=== PATIENT | male | born 1960 | race Caucasian/White ===

== ENCOUNTER 2024-02-27 10:28 | Emergency (ER) | payer MEDICARE, SELFPAY ==
--- NOTE | ~2024-02-27 | XR_ITS ---
EXAMINATION: XR KNEE, LEFT XR TIBIA AND FIBULA, LEFT CLINICAL INFORMATION: Pain. Injury. COMPARISON: None available. TECHNIQUE: AP and lateral views of the left knee. AP and lateral views of the left tibia and fibula. 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 Lucency between the distal femur and anterior flange of the femoral component measures less than 2 mm and is nonspecific, most likely due to fibrous incorporation. Alignment appears appropriate. No joint effusion. Atherosclerotic calcifications are present in the popliteal and runoff arteries. Bones are osteopenic. The tibia and fibula are intact. Mild osteoarthritis of the talocrural joint with small marginal osteophytes. Moderate-sized enthesopathic spurs are present at the Achilles tendon insertion and plantar fascial origin on the calcaneus. XR/XR knee LT 2V IMPRESSION: 1. No acute fracture or malalignment at the left knee. 2. Appropriate alignment of the left total knee arthroplasty. 3. Mild osteoarthritis at the talocrural joint. Electronically signed by: Ashkan Forrest MD 02/27/2024 03:01 PM EDT
--- NOTE | ~2024-02-27 | US_ITS ---
EXAMINATION: US TRIPLEX LOWER EXTREMITY, LEFT CLINICAL INFORMATION: Left lower extremity pain COMPARISON: None available. TECHNIQUE: Color-flow triplex imaging with spectral analysis and compression Doppler were performed on the left lower extremity. FINDINGS: Respiratory variation, normal compression and augmented flow are noted throughout the left lower extremity. The visualized common femoral vein, superficial femoral vein, profunda femoral vein, popliteal vein and midcalf peroneal and posterior tibial venous segments show no evidence of deep venous thrombosis. The contralateral right common femoral vein appeared normal. There is no Walton's cyst. US/US venous duplex LE LT IMPRESSION: No evidence of deep venous thrombosis involving the left lower extremity. Electronically signed by: William Maria MD 02/27/2024 02:17 PM EDT
--- NOTE | ~2024-02-27 | XR_ITS ---
EXAMINATION: XR KNEE, LEFT XR TIBIA AND FIBULA, LEFT CLINICAL INFORMATION: Pain. Injury. COMPARISON: None available. TECHNIQUE: AP and lateral views of the left knee. AP and lateral views of the left tibia and fibula. 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 Lucency between the distal femur and anterior flange of the femoral component measures less than 2 mm and is nonspecific, most likely due to fibrous incorporation. Alignment appears appropriate. No joint effusion. Atherosclerotic calcifications are present in the popliteal and runoff arteries. Bones are osteopenic. The tibia and fibula are intact. Mild osteoarthritis of the talocrural joint with small marginal osteophytes. Moderate-sized enthesopathic spurs are present at the Achilles tendon insertion and plantar fascial origin on the calcaneus. XR/XR tibia fibula LT 2V IMPRESSION: 1. No acute fracture or malalignment at the left knee. 2. Appropriate alignment of the left total knee arthroplasty. 3. Mild osteoarthritis at the talocrural joint. Electronically signed by: Ashkan Forrest MD 02/27/2024 03:01 PM EDT
[2024-02-27 10:37] VITALS: BP 103/70; PULSE 80; RESP 20; TEMP 36.8; O2SAT 100; BMI 23.7
--- NOTE | 2024-02-27 11:39 | ED_ITS ---
HPI - General Adult General Chief complaint: General Medical Stated complaint: ? Blood Clot L Leg Time Seen by Provider: 02/27/24 11:36 Source: patient Mode of arrival: ambulatory Limitations: no limitations History of Present Illness ED Provider: Nydia Carballo PA-C HPI narrative: Patient is a 63 year old assigned male at with a history of strokes, atrial fib (on anti-coags), and fluid retention presenting to the emergency department today with left lower leg pain. Patient states that 4 days ago he began to have left lower leg pain and discoloration. Patient denies any dizziness, lightheadedness, abdominal pain, nausea, vomiting, fever, chills, blurry vision, double vision, loss of vision, chest pain, difficulty breathing, shortness of breath, back pain, night sweats, pain with urination, increased urinary frequency, increased urinary urgency, blood in his urine or stool, syncope or a near syncopal episode, recent trauma or falls, bowel incontinence, bladder incontinence, or any other complaints at this time. Onset (ago): day(s) (4) Location: left and lower extremity Relieving factors: none Exacerbating factors: none Associated symptoms: denies other symptoms Treatments prior to arrival: none Related Data Allergies Allergy/AdvReac Type Severity Reaction Status Date / Time No Known Allergies Allergy Verified 02/27/24 10:41 Review of Systems 2 Constitutional: Constitutional: Reports no additional constitutional complaints, Denies chills, Denies fever(s) and Denies night sweats Eyes: Eyes: Reports no additional eye complaints, Denies blurry vision, Denies change in vision, Denies diplopia, Denies eye discharge, Denies loss of vision and Denies eye pain ENT: Denies dizziness Cardiovascular: Cardiovascular: Reports no additional cardiovascular complaints, Denies chest pain, Denies lightheadedness, Denies Loss of Consciousness and Denies dyspnea Respiratory: Respiratory: Reports no additional respiratory complaints and Denies dyspnea Gastrointestinal: Gastrointestinal: Reports no additional gastrointestinal complaints, Denies abdominal pain, Denies melena, Denies hematochezia, Denies change in bowel habits and Denies change in stool character Genitourinary: Genitourinary: Reports no additional male genitourinary complaints, Denies hematuria, Denies oliguria, Denies difficulty urinating, Denies dysuria, Denies urinary frequency, Denies urinary hesitancy, Denies urinary incontinence and Denies urinary urgency Musculoskeletal: Musculoskeletal: Reports no additional musculoskeletal complaints, Denies numbness and Denies tingling Comments: left lower extremity pain / swelling Neurologic: Denies dizziness, Denies loss of vision, Denies numbness and Denies tingling Psychiatric: Psychiatric: Reports no additional psychiatric complaints Endocrine: Endocrine: Reports no additional endocrine complaints Hematologic/Lymphatic: Hematologic/Lymphatic: Reports no additional hematologic/lymphatic complaints Allergic/Immunologic: Allergic/Immunologic: Reports no additional allergic/immunologic complaints [facility] Past Medical History Attestation statement: The following information was validated with the patient. Source: old records reviewed and nursing notes reviewed Social History Social History Smoked in Last 30 Days: Yes Use of substances other than those prescribed or required for medical reasons: Yes Substance Use Type: Marijuana Advance Directives: Yes Advance Directives Information Provided: Yes Advance Directives on File: No Do you have a plan to hurt others: No Plan Physical Exam ED Vital Signs: Vital Signs - 24 hr 02/27/24 10:37 02/27/24 14:43 Temperature 98.3 F 0 F L Pulse Rate 80 68 Respiratory Rate 20 16 Blood Pressure 103/70 124/84 Pulse Oximetry 100 99 Oxygen Delivery Method Room Air Room Air BMI result Body Mass Index 23.7 Const General: cooperative, no acute distress, alert and awake Nutritional Appearance: well nourished Orientation/consciousness: patient oriented x3 Limitations: no limitations HENMT Head: Yes normal to inspection and Yes atraumatic Ears: hearing grossly normal bilaterally and external ears normal General nose exam: Normal external nose present, no nasal discharge noted and no epistaxis Face and sinus: Yes normal facial exam, No abrasion and No laceration Mouth: Normal oral and palatal mucosa present, no drooling and no muffled voice Eyes General: appearance normal, both eyes and all related structures Periorbital: periorbital findings normal Eyelids: Yes eyelids normal Conjunctivae: conjunctivae normal Pupils: Equal, round and reactive pupils present EOM: EOMs intact bilaterally Neck Neck: Yes normal visual inspection, Yes full ROM and Yes no lymphadenopathy Chest Chest palpation & inspection: normal inspection of the chest Resp Effort & Inspection: normal respiratory effort and able to speak in complete sentences GI Inspection: Yes normal to inspection Neuro General: patient oriented x3 and moves all extremities Cranial nerves: Yes Equal, round and reactive pupils present Cognition (Neuro): normal cognition Extrem Other: mild left lower extremity swelling / pain / bruising General: Yes full ROM and Yes capillary refill normal Psych Appearance: grossly normal Mental Status: mental status grossly normal Affect: normal affect Attitude: cooperative Thought process: Normal thought process present Thought content: Normal thought content present Insight: Good insight present (Psych) Medications Administered Discontinued Medications Generic Name Dose Route Start Last Admin Trade Name James PRN Reason Stop Dose Admin Potassium Chloride 40 meq 02/27/24 12:23 02/27/24 12:28 Potassium Chloride Packet 20 Meq Packet PO 02/27/24 12:24 40 meq ONCE ONE Administration Medical Decision Making Medical Decision Making [facility] Narrative: Patient is a 63 year old assigned male at with a history of strokes, atrial fib (on anti-coags), and fluid retention presenting to the emergency department today with left lower leg bruising and pain. Patient's physical exam was as noted in the physical exam portion of this note. Patient's blood work showed a mildly decreased potassium of 3.0 but were otherwise unremarkable. Patient's urine showed no acute process. Patient's EKG was unremarkable. Patient's left lower leg US showed no acute process. Given the patient has pain with walking to the left lower extremity - I'm suspicious his bruising and swelling is secondary to a muscle strain / sprain. I explained my physical exam findings as well as all test results to the patient and the patient's . I answered all questions asked by the patient and the patient's . Patient was given PO Potassium. I stressed the importance of the patient taking his medication as directed (either prescribed or as the over the counter packaging recommends). I stressed the importance of the patient following up with his primary care provider. I stressed the importance of the patient returning to the emergency department immediately if his symptoms were to worsen or if he were to develop any dizziness, shortness of breath, difficulty breathing, chest pain, blurry vision, loss of vision, nausea, vomiting, abdominal pain, fever, chills, back pain, or any other complaints. Patient verbalized agreement and understanding with this treatment plan and discharge. Differential Diagnosis Differential Diagnoses: The differential diagnosis associated with the presentation includes Muscle sprain Muscle strain DVT Admission/Observation Consideration of admission/observation: Escalation of care including admission/observation considered Patient would have been admitted to the hospital had his work up had any findings where hospital admission was appropriate and his clinical presentation warranted hospital admission. Lab Data [facility] Lab Attestation statement: I reviewed the patient's lab results. My interpretation of these results are in the [facility] Rationale portion of this note. 02/27/24 11:55 02/27/24 11:55 Labs: Lab Results 02/27/24 02/27/24 02/27/24 Range/Units 11:55 12:09 12:30 WBC 8.4 (4.8-10.8) X10*3/uL RBC 4.00 L (4.60-5.80) X10*6/uL Hgb 13.1 L (14.0-18.0) g/dl Hct 37.3 L (42.0-52.0) % MCV 93.3 (80.0-98.0) fL MCH 32.8 (27.0-33.0) pg MCHC 35.1 (31.0-36.0) g/dl RDW 14.3 (11.0-16.0) % Plt Count 243 (160-400) X10*3/uL MPV 10.3 (9.4-12.4) fL Immature Gran % (Auto) 0.2 (0.0-0.4) % Neut % (Auto) 65.8 (45-73) % Lymph % (Auto) 24.7 (20-40) % Daniels % (Auto) 6.9 (2-11) % Eos % (Auto) 2.0 (0-4) % Baso % (Auto) 0.4 (0-2) % Lymph # (Auto) 2.1 (1.2-4.9) X10*3/uL Daniels # (Auto) 0.6 (0.1-1.2) X10*3/uL Eos # (Auto) 0.2 (0.0-0.4) X10*3/uL Baso # (Auto) 0.0 (0.0-0.2) X10*3/uL Abs Immat Gran (auto) 0.02 (0.00-0.03) X10*3/uL Absolute Neuts (auto) 5.5 (2.0-8.3) x10*3/uL Absolute Nucleated RBC 0.000 (0.0-0.012) X10*3/uL Nucleated RBC % (auto) 0.0 (0.0-0.2) /100WBC PT 18.5 H (11.1-13.3) SEC INR 1.5 H (0.9-1.1) APTT 37.4 H (26.0-36.8) SEC Sodium 141 (135-145) mmol/L Potassium 3.0 L (3.3-5.1) mmol/L Chloride 94 L (96-108) mmol/L Carbon Dioxide 34 H (22-29) mmol/L Anion Gap 16 (12-20) BUN 20 H (9-16) mg/dL Creatinine 1.60 H (0.5-1.4) mg/dL Estim Creat Clear Calc 51.1 Estimated GFR 44 Random Glucose 96 (60-115) mg/dL Calcium 10.1 (8.4-10.2) mg/dL Magnesium 1.8 (1.6-2.6) mg/dL Total Bilirubin 0.7 (0.0-1.0) mg/dL AST 25 (5-37) U/L ALT 13 (0-40) U/L Alkaline Phosphatase 74 (39-117) U/L B-Natriuretic Peptide 510 H (<100) pg/mL Total Protein 6.8 (6.5-8.0) g/dL Albumin 4.0 (3.5-5.0) g/dL Urine Color Yellow Urine Appearance Clear Urine pH 7.0 (5.0-9.0) Ur Specific [place] 1.010 (1.005-1.025) Urine Protein Negative (Neg-Trace) mg/dL Urine Glucose (UA) 500 H (Negative) mg/dL Urine Ketones Trace (Negative) mg/dL Urine Blood Negative (Negative) Urine Nitrite Negative (Negative) Ur Leukocyte Esterase Negative (Negative) Influenza Type A (PCR) NEGATIVE (Negative) Influenza Type B (PCR) NEGATIVE (Negative) RSV RNA Qual (PCR) NEGATIVE (Negative) SARS-CoV-2 RNA (RT-PCR) NEGATIVE (Negative) Independent Interpretation I performed an independent interpretation of an: Plain X-Ray and Ultrasound Interpretation: My interpretation is in agreement with the radiologist's impression of these imaging studies. L EXAMINATION: US TRIPLEX LOWER EXTREMITY, LEFT CLINICAL INFORMATION: Left lower extremity pain COMPARISON: None available. TECHNIQUE: Color-flow triplex imaging with spectral analysis and compression Doppler were performed on the left lower extremity. FINDINGS: Respiratory variation, normal compression and augmented flow are noted throughout the left lower extremity. The visualized common femoral vein, superficial femoral vein, profunda femoral vein, popliteal vein and midcalf peroneal and posterior tibial venous segments show no evidence of deep venous thrombosis. The contralateral right common femoral vein appeared normal. There is no Walton's cyst. US/US venous duplex LE LT IMPRESSION: No evidence of deep venous thrombosis involving the left lower extremity. Electronically signed by: William Maria MD 02/27/2024 02:17 PM EDT RP Dictated By: William Maria MD Signed By: Electronically signed by William Maria MD 02/27/24 1417 EXAMINATION: XR KNEE, LEFT XR TIBIA AND FIBULA, LEFT CLINICAL INFORMATION: Pain. Injury. COMPARISON: None available. TECHNIQUE: AP and lateral views of the left knee. AP and lateral views of the left tibia and fibula. 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 Lucency between the distal femur and anterior flange of the femoral component measures less than 2 mm and is nonspecific, most likely due to fibrous incorporation. Alignment appears appropriate. No joint effusion. Atherosclerotic calcifications are present in the popliteal and runoff arteries. Bones are osteopenic. The tibia and fibula are intact. Mild osteoarthritis of the talocrural joint with small marginal osteophytes. Moderate-sized enthesopathic spurs are present at the Achilles tendon insertion and plantar fascial origin on the calcaneus. XR/XR knee LT 2V IMPRESSION: 1. No acute fracture or malalignment at the left knee. 2. Appropriate alignment of the left total knee arthroplasty. 3. Mild osteoarthritis at the talocrural joint. Electronically signed by: Ashkan Forrest MD 02/27/2024 03:01 PM EDT RP Dictated By: Ashkan Forrest MD Signed By: Electronically signed by Ashkan Forrest MD 02/27/24 1501 Vent. Rate: 069 BPM Atrial Rate: 069 BPM P-R Int: 204 ms QRS Dur: 172 ms QT Int: 510 ms P-R-T Axes: 061 115 -66 degrees QTc Int: 546 ms Normal sinus rhythm Right axis deviation Non-specific intra-ventricular conduction block No previous ECGs available DD/ 1157 Radiology Impression Discussion of test interpretation with radiology: I have reviewed the radiologist's reading. Independent Historian Clinical information obtained from an independent historian. History obtained from or confirmed by: Spouse (patient's provided additional history and confirmed the history provided by the patient.) Discharge Plan Discharge Clinical Impression: Superficial bruising of lower leg Patient Disposition: Home, Self-Care Instructions: Contusion in Adults (ED) Additional Instructions: Follow up with your primary care provider. Return to the emergency department immediately if your symptoms worsen or if you develop any dizziness, shortness of breath, difficulty breathing, chest pain, blurry vision, loss of vision, nausea, vomiting, abdominal pain, fever, chills, back pain, or any other complaints. Interventions: ED Discharge Assessment Last Done: 02/27/24 14:43 Discharge Date/Time: 02/27/24 14:44 Print Language: Malay
--- NOTE | 2024-02-27 11:40 | ECG_ITS ---
Test Reason : PAIN Blood Pressure : / mmHG Vent. Rate : 069 BPM Atrial Rate : 069 BPM P-R Int : 204 ms QRS Dur : 172 ms QT Int : 510 ms P-R-T Axes : 061 115 -66 degrees QTc Int : 546 ms Normal sinus rhythm Right axis deviation Non-specific intra-ventricular conduction block Abnormal ECG No previous ECGs available Referred By: Nydia Carballo Electronically Signed By:BLANCA RIOS
[2024-02-27 12:01] LABS: MANUAL DIFF FLAG NO
[2024-02-27 12:02] LABS: Basophils Percent Auto 0.4 % (0-2); Eosinophils Absolute Auto 0.2 X10*3/uL (0.0-0.4); Hematocrit 37.3 % (42.0-52.0); Hemoglobin 13.1 g/dl (14.0-18.0); Imm Gran Abs Auto 0.02 X10*3/uL (0.00-0.03); Imm Gran Pct Auto 0.2 % (0.0-0.4); Lymphocytes Absolute Auto 2.1 X10*3/uL (1.2-4.9); Lymphocytes Percent Auto 24.7 % (20-40); Mean Corpuscular HGB Conc 35.1 g/dl (31.0-36.0); Mean Corpuscular Hemoglobin 32.8 pg (27.0-33.0); Mean Corpuscular Volume 93.3 fL (80.0-98.0); Mean Platelet Volume 10.3 fL (9.4-12.4); Monocytes Absolute Auto 0.6 X10*3/uL (0.1-1.2); Monocytes Percent Auto 6.9 % (2-11); Neutrophils Absolute Auto 5.5 x10*3/uL (2.0-8.3); Neutrophils Percent Auto 65.8 % (45-73); Platelet Count 243 X10*3/uL (160-400); Red Cell Distribution Width 14.3 % (11.0-16.0); White Blood Count 8.4 X10*3/uL (4.8-10.8)
[2024-02-27 12:22] LABS: Alanine Aminotransferase 13 U/L (0-40); Alkaline Phosphatase 74 U/L (39-117); Anion Gap 16 (12-20); Aspartate Amino Transferase 25 U/L (5-37); Bilirubin Total 0.7 mg/dL (0.0-1.0); Blood Urea Nitrogen 20 mg/dL (9-16); Calcium 10.1 mg/dL (8.4-10.2); Carbon Dioxide 34 mmol/L (22-29); Chloride 94 mmol/L (96-108); Creatinine Clr Calc Pharmacy 51.1; Estimated Glomerular Filt Rate 44; Glucose Random 96 mg/dL (60-115); Magnesium 1.8 mg/dL (1.6-2.6); Sodium 141 mmol/L (135-145); Total Protein 6.8 g/dL (6.5-8.0)
--- NOTE | 2024-02-27 12:23 | PC.NURSE ---
Pt presents to ED from home, reports left leg swelling and bruising for past couple of days worsening. Along with pain in calf area with movement or touch. PCP told him to come to ER due to possible clot. Pt denies CP but does report SOB with exertion. Alert and oriented, breathing even and unlabored while at rest. Bruising noted to left foot along with swelling. [id number] intact.
[2024-02-27 12:26] LABS: INTERNATIONAL NORM RATIO 1.5 (0.9-1.1); Prothrombin Time 18.5 SEC (11.1-13.3)
[2024-02-27 12:26] LABS: B Type Natriuretic Peptide 510 pg/mL (<100)
[2024-02-27 12:28] LABS: Partial Thromboplastin Time 37.4 SEC (26.0-36.8)
[2024-02-27] MEDS: Potassium Chloride Packet 20 MEQ PACKET 40 MEQ PO (12:28)
[2024-02-27 12:38] LABS: Appearance Urine Clear; Color Urine Yellow; Glucose Urine UA 500 mg/dL (Negative); Leukocyte Esterase Urine Negative (Negative); Nitrite Urine Negative (Negative); Urine Blood Negative (Negative); Urine Ketones Trace mg/dL (Negative); Urine Protein Negative (Neg-Trace)
[2024-02-27 12:46] LABS: Influenza A PCR NEGATIVE (Negative); Influenza B PCR NEGATIVE (Negative); Resp Syncy Virus RNA Qual PCR NEGATIVE (Negative); SARS COV2 PCR INHOUSE NEGATIVE (Negative)
[2024-02-27 14:43] VITALS: BP 124/84; PULSE 68; RESP 16; TEMP -17.7; TEMP 0; O2SAT 99
== END 2024-02-27 14:44 | disposition home or self-care (01) ==
PROVIDERS: Physician Assistant Medical; Emergency Provider Emergency Medicine
DX: S80.12XA Contusion of left lower leg, initial encounter (principal); M79.605 Pain in left leg; R60.0 Localized edema; R06.02 Shortness of breath; X58.XXXA Exposure to other specified factors, initial encounter; Y93.89 Activity, other specified; Y92.89 Other specified places as the place of occurrence of the external cause; Y99.8 Other external cause status; Z03.818 Encounter for observation for suspected exposure to other biological agents ruled out; Z79.899 Other long term (current) drug therapy
CPT/HCPCS: 0241U; 36415; 73560; 73590; 80053; 81003; 83735; 83880; 85025; 85610; 85730; 93005; 93971; 99284